=== PATIENT | female | born 1975 | race Caucasian/White ===

== ENCOUNTER → 2020-12-05 13:51 | Outpatient (CLI) | payer OTHER, SELFPAY ==
--- NOTE | ~2020-12-05 | MM_ITS ---
EXAMINATION: MM screening luann BI w que HISTORY: Screening TECHNIQUE: Craniocaudal and mediolateral oblique 3-D tomosynthesis images were obtained and synthetic 2-D images were generated. CAD analysis was submitted and interpreted. COMPARISON: No prior mammogram is available for comparison at this institution. BREAST PARENCHYMAL COMPOSITION: Breast composed of scattered areas of fibroglandular density. FINDINGS: There is a 6 mm mass in the subareolar location of the left breast. There is no mammographi c evidence for malignancy in the left breast. IMPRESSION: 1. Left breast mass, subareolar location measuring 6 mm. 2. Additional mammographic views and possible breast ultrasound are recommended. BI-RADS Category 0: Incomplete: Needs additional imaging evaluation. Reviewed, dictated and finalized at location A. IMPRESSION: 1. Left breast mass, subareolar location measuring 6 mm. 2. Additional mammographic views and possible breast ultrasound are recommended . BI-RADS Category 0: Incomplete: Needs additional imaging evaluation.
== END ==
PROVIDERS: Visit Provider Obstetrics & Gynecology
DX: Z12.31 Encounter for screening mammogram for malignant neoplasm of breast (principal); R92.8 Other abnormal and inconclusive findings on diagnostic imaging of breast
CPT/HCPCS: 77063; 77067

== ENCOUNTER → 2020-12-29 08:54 | Outpatient (CLI) | payer OTHER, SELFPAY ==
--- NOTE | ~2020-12-29 | MMUS_ITS ---
EXAMINATION: MM diagnostic mammo unilat LT, US breast LT limited HISTORY: 6 mm mass in subareolar left breast reported on 12/05/2020 screening mammogram examination TECHNIQUE: Additional 3-D tomosynthesis images of the left breast were performed and synthetic 2-D im ages were generated. CAD analysis was submitted and interpreted. High resolution targeted left breast ultrasound at 2:00 area was performed. COMPARISON: 12/05/2020 bilateral digital screening mammogram FINDINGS: MAMMOGRAPHIC FINDINGS: An approximately 5 mm mildly irregular mass is confirmed approximately 3.5 cm deep to the nipple in t he upper outer quadrant of the left breast within 2 cm with midline at approximately 2:00 position. ULTRASOUND: Mildly irregular approximately 5 mm hypoechoic lesion is identified at 2:00 1 cm from the nipple. No internal vascularity or posterior features are noted. Ultrasound-guided biopsy is recommended. IMPRESSION: 1. Mildly irregular 5 mm mass at 2:00 2. Ultrasound-guided biopsy of left breast 2:00 5 mm mass is recommended BI-RADS category 4, suspicious finding. Dr. Huff telephoned the report and ultrasound guided biopsy recommendation to Minnie on 12/29/2020 at 1043 hours Reviewed, dictated and finalized at location A. IMPRESSION: 1. Mildly irregular 5 mm mass at 2:00 2. Ultrasound-guided biopsy of left breast 2:00 5 mm mass is recommended BI-RADS category 4, suspicious finding. Dr. Huff telephoned the report and ultrasound guided biopsy recommendation to Kayleigh boykin on 12/29/2020 at 1043 hours
== END ==
PROVIDERS: Visit Provider Obstetrics & Gynecology
DX: R92.8 Other abnormal and inconclusive findings on diagnostic imaging of breast (principal)
CPT/HCPCS: 76642; 77065

== ENCOUNTER → 2021-08-21 10:01 | Outpatient (CLI) | payer OTHER, SELFPAY ==
--- NOTE | ~2021-08-21 | XR_ITS ---
XR knee LT 2V DATE: 08/21/2021 10:29 INDICATION: Left knee pain. Osteoarthritis. TECHNIQUE: Standing AP and lateral views COMPARISON: None FINDINGS: No fracture or dislocation or joint effusion. There is minimal periarticular spurring of the patellofemoral and medial and lateral compartments con sistent with mild osteophytosis. Joint spaces are preserved. No radiographic intra-articular loose liudmila dy or chondrocalcinosis. No periosteal reaction or bone destruction. IMPRESSION: Mild osteoarthritis Reviewed, dictated and finalized at location B. [employer] IMPRESSION: Mild osteoarthritis
== END ==
PROVIDERS: Visit Provider Nurse Practitioner Adult Health
DX: M17.12 Unilateral primary osteoarthritis, left knee (principal)
CPT/HCPCS: 73560

== ENCOUNTER → 2022-01-30 11:48 | Outpatient (CLI) | payer OTHER, SELFPAY ==
--- NOTE | ~2022-01-30 | MM_ITS ---
EXAMINATION: MM screening luann BI w que HISTORY: Screening mammogram TECHNIQUE: Craniocaudal and mediolateral oblique 3-D tomosynthesis images were obtained and synthetic 2-D images were generated. CAD analysis was submitted and interpreted. COMPARISON: 12/29/2020, 12/05/2020 BREAST PARENCHYMAL COMPOSITION: There are scattered areas of fibroglandular density. FINDINGS: Interval biopsy change is noted in the previously described left breast mass. There is no s uspicious mass, calcification, or architectural distortion to suggest malignancy in either breast. Th ere has been no suspicious interval change. IMPRESSION: 1. No mammographic evidence of malignancy. 2. Recommend routine screening mammography in one year. BI-RADS Category 2: Benign finding(s). Reviewed, dictated and finalized at location A.
== END ==
PROVIDERS: PCP Internal Medicine; Visit Provider Obstetrics & Gynecology
DX: Z12.31 Encounter for screening mammogram for malignant neoplasm of breast (principal)
CPT/HCPCS: 77063; 77067